=== PATIENT | female | born 1975 | race Caucasian/White ===

== ENCOUNTER 2017-10-09 22:46 | Emergency (ER) | payer MEDICARE, MEDICAID ==
[2017-10-09] MEDS ORDERED: NALOXONE HCL INJ/PF 0.4 MG/1 ML SDV ONE (22:52)
[2017-10-09] MEDS ORDERED: NORMAL SALINE 1000 ML 1,000 ML IV PRN (22:55)
[2017-10-09] MEDS ORDERED: NALOXONE HCL INJ/PF 0.4 MG/1 ML SDV IV ONE (22:55)
--- NOTE | 2017-10-09 22:59 | ER Document Report ---
ED Substance Abuse / Acc. OD - General Stated Complaint: UNRESPONSIVE Notes: Patient is a 41-year-old female that comes by EMS from home after being found unresponsive. Sister found patient and called EMS. EMS reports that patient broke up with her boyfriend nathan, has a history of anxiety and depression. No report of patient taking anything more pills lying around. Patient unable to provide any history due to her unresponsive state. - Related Data Allergies/Adverse Reactions: acetaminophen [From Vicodin] Allergy (Verified 10/10/17 01:08) hydrocodone [From Vicodin] Allergy (Verified 10/10/17 01:08) Past Medical History - General Information source: Emergency Med Personnel - Social History Smoking Status: Never Smoker Frequency of alcohol use: None Drug Abuse: None Lives with: Family Family History: Reviewed & Not Pertinent Malignancy Medical History: Reports: Hx Breast Cancer Psychiatric Medical History: Reports: Hx Anxiety, Hx Depression - Immunizations Immunizations up to date: Yes Hx Diphtheria, Pertussis, Tetanus Vaccination: Yes Review of Systems - Review of Systems Constitutional: No symptoms reported EENT: No symptoms reported Cardiovascular: See HPI Respiratory: See HPI Gastrointestinal: See HPI Genitourinary: No symptoms reported Female Genitourinary: No symptoms reported Musculoskeletal: No symptoms reported Skin: No symptoms reported Hematologic/Lymphatic: No symptoms reported Neurological/Psychological: See HPI Physical Exam - Vital signs Vitals: Resp Pulse Ox 20 99 10/09/17 22:53 10/09/17 22:53 - General General appearance: Unresponsive - Respiratory Respiratory status: Other - Slightly depressed respirations Breath sounds: Normal. No: Rales, Rhonchi, Stridor, Wheezing - Cardiovascular Rhythm: Regular. No: Tachycardia Heart sounds: Normal auscultation, S1 appreciated, S2 appreciated - Abdominal Inspection: Normal Distension: No: Distended Tenderness: Nontender - Back Back: Normal, Nontender - Extremities General upper extremity: Normal inspection. No: Edema General lower extremity: Normal inspection. No: Edema - Neurological [place] Coma Scale Eye Opening: None [place] Coma Scale Verbal: None [place] Coma Scale Motor: None [place] Coma Scale Total: 3 - Skin Skin Temperature: Warm Skin Moisture: Dry Skin Color: Normal Course - Re-evaluation Re-evalutation: On evaluation patient suddenly took a large inspiration and started moving and responding; patient began answering questions and following directions although she remains sedated. She is tachycardic. NPA airway in place. Patient denies taking any medications, drinking any alcohol, she just asks "where am I" and is not cooperating answering any questions at this time. Giving IV fluids, keeping on monitor, workup pending. Dr. Miller evaluated patient at bedside. 10/09/17 23:15 Family including father and sister at bedside. They state that patient got home from the store, she vomited about 7 times, she began to get pale, then she slumped over and became unresponsive. Dad states he put some sugar in her mouth because he thought her blood sugar might be low. They state when they could not awaken the patient they called EMS. They deny that she took any medications or did anything out of the ordinary. Patient is now fully awake, alert, sitting up, talking, emotional. Patient given IV fluids, tachycardia significantly improved. She complains of soreness over the area where sternal rub was performed but otherwise denies any current symptoms. CBC, chemistry, urinalysis, urine drug screen all unremarkable. EKG showing sinus tachycardia with no other abnormalities. Chest x-ray unremarkable, CAT scan of the head unremarkable. Patient appears to have had an episode of syncope but her extended unresponsive state is not defined or clear. I do not know the cause of her symptoms at this time. D-Dimer placed because patient continues to have borderline tachycardia and because I am not sure of the cause of her symptoms tonight. Discussed with Dr. Solis, also recommends troponin, agrees with d-dimer. D-dimer elevated, will perform CTA. CTA shows pulmonary nodules which appear benign, no pulmonary emboli or other acute abnormality. Patient continues to be alert and well-appearing, she ambulates without any difficulty or return syncope. Patient and family are asking to go home. Patient denies SI or HI, she has good family support, she states she was upset about earlier but states that she has no intention of hurting herself or anyone else. Family states they feel that she should be at home with them. Patient does have good primary care follow-up, given a copy of her CAT scan, discussed follow-up importance because of a history of cancer in the family including lung cancer, discussed return precautions. They state understanding and agreement. - Vital Signs Vital signs: Temp Pulse Resp BP Pulse Ox 19 108/79 97 10/10/17 01:01 10/10/17 01:01 10/10/17 01:01 - Laboratory Result Diagrams: 10/09/17 22:50 10/09/17 22:50 Laboratory results interpreted by me: 10/09/17 10/09/17 10/09/17 22:50 22:50 22:50 RDW 15.0 H D-Dimer 0.77 H Est GFR (Non-Af Amer) 53 L AST 66 H Salicylates < 1.0 L Acetaminophen < 10 L Discharge - Discharge Clinical Impression: Syncope Qualifiers: Syncope type: unspecified Qualified Code(s): R55 - Syncope and collapse Condition: Stable Disposition: HOME, SELF-CARE Additional Instructions: Your CAT scan shows what appear to be benign nodules in your lungs but no clot or concerning other finding was found on your workup tonight. The exact cause of your passing out and symptoms tonight is uncertain. Follow- up closely with your primary care provider. You will need follow-up studies for monitoring to make sure you do not develop cancer nodules in your lungs. Return for any concerning symptoms including difficulty breathing, passing out again, fever, or any other concerning symptoms.
[2017-10-09 23:09] LABS: ABSOLUTE BASOPHILS # (AUTO) 0.1 10^3/uL (0.0-0.2); ABSOLUTE EOSINOPHILS # (AUTO) 0.2 10^3/uL (0.0-0.6); ABSOLUTE LYMPHOCYTES (AUTO) 2.2 10^3/uL (0.5-4.7); ABSOLUTE MONOCYTES (AUTO) 0.5 10^3/uL (0.1-1.4); ABSOLUTE NEUT (AUTO) 2.3 10^3/uL (1.7-8.2); BASOPHILS % (AUTO) 1.1 % (0-2); EOSINOPHILS % (AUTO) 3.2 % (0-6); HEMATOCRIT 42.9 % (36.0-47.0); HEMOGLOBIN 14.6 g/dL (12.0-15.5); LYMPHOCYTES % (AUTO) 41.5 % (13-45); MEAN CORPUSCULAR HEMOGLOBIN 30.6 pg (27.0-33.4); MEAN CORPUSCULAR VOLUME 90 fl (80-97); MONOCYTES % (AUTO) 9.3 % (3-13); PLATELET COUNT 177 10^3/uL (150-450); RED BLOOD COUNT 4.76 10^6/uL (3.72-5.28); SEGMENTED NEUTROPHILS % (AUTO) 44.9 % (42-78); TOTAL CELLS COUNTED % (AUTO) 100 %; WHITE BLOOD COUNT 5.2 10^3/uL (4.0-10.5)
[2017-10-09 23:12] LABS: VENOUS BLOOD BASE EXCESS 2.3 mmol/L; VENOUS BLOOD HCO3 27.9 mmol/L (20-32); VENOUS BLOOD PCO2 46.6 mmHg (35-63); VENOUS BLOOD PH 7.4 (7.30-7.42)
[2017-10-09 23:29] LABS: ALANINE AMINOTRANSFERASE 34 U/L (9-52); ALBUMIN 4.6 g/dL (3.5-5.0); ALKALINE PHOSPHATASE 80 U/L (38-126); ANION GAP 12 (5-19); ASPARTATE AMINO TRANSFERASE 66 U/L (14-36); BILIRUBIN,DIRECT 0.2 mg/dL (0.0-0.4); BILIRUBIN,TOTAL 1.1 mg/dL (0.2-1.3); BLOOD UREA NITROGEN 15 mg/dL (7-20); CALCIUM 9.9 mg/dL (8.4-10.2); CARBON DIOXIDE 26 mmol/L (22-30); CHLORIDE 104 mmol/L (98-107); GLUCOSE 99 mg/dL (75-110); SODIUM 142.3 mmol/L (137-145); TOTAL PROTEIN 7.3 g/dL (6.3-8.2)
[2017-10-09 23:30] LABS: ACETAMINOPHEN < 10 ug/mL (10-30); ALCOHOL < 10 mg/dL (NONE DETECTED); SALICYLATE < 1.0 mg/dL (2.0-20.0)
--- NOTE | 2017-10-10 00:05 | RADIOLOGY REPORT (SQ) ---
EXAM DESCRIPTION: CHEST SINGLE VIEW CLINICAL HISTORY: 41 years, Female, unresponsive COMPARISON: None. NUMBER OF VIEWS: 1 LIMITATIONS: None. FINDINGS: Prominent interstitium, normal cardiac silhouette, and lower cervical hardware fusion. IMPRESSION: No acute cardiopulmonary findings.
[2017-10-10 00:14] LABS: APPEARANCE,URINE CLEAR; BILIRUBIN,URINE NEGATIVE (NEGATIVE); COLOR,URINE STRAW; GLUCOSE, URINE NEGATIVE (NEGATIVE); KETONES,URINE NEGATIVE (NEGATIVE); LEUKOCYTE ESTERASE,URINE NEGATIVE (NEGATIVE); NITRITE,URINE NEGATIVE (NEGATIVE); PROTEIN,URINE NEGATIVE (NEGATIVE); URINE SPECIFIC GRAVITY 1.003; UROBILINOGEN,URINE NEGATIVE mg/dL (<2.0)
--- NOTE | 2017-10-10 00:17 | RADIOLOGY REPORT (SQ) ---
EXAM DESCRIPTION: CT HEAD WITHOUT CLINICAL HISTORY: 41 years Female, AMS COMPARISON: None. TECHNIQUE: No contrast. This exam was performed according to our departmental dose-optimization program, which includes automated exposure control, adjustment of the mA and/or kV according to patient size and/or use of iterative reconstruction technique. FINDINGS: No hemorrhage or infarct. No mass, mass effect, or midline shift. Brain and extra-axial structures appear otherwise intact. IMPRESSION: Normal CT of the head.
[2017-10-10 00:28] LABS: URINE AMPHETAMINES SCREEN NEGATIVE; URINE BARBITURATES SCREEN NEGATIVE; URINE BENZODIAZEPINES SCREEN NEGATIVE; URINE COCAINE SCREEN NEGATIVE; URINE MARIJUANA (THC) SCREEN NEGATIVE; URINE PHENCYCLIDINE SCREEN NEGATIVE
[2017-10-10 00:29] LABS: URINE METHADONE SCREEN NEGATIVE
[2017-10-10] MEDS ORDERED: KETOROLAC TROMETHAMINE INJ/PF 30 MG/1 ML SDV IV ONE (00:42)
[2017-10-10] MEDS ORDERED: FENTANYL CITRATE INJ/PF 100 MCG/2 ML AMPUL IV ONE (01:34)
--- NOTE | 2017-10-10 02:40 | RADIOLOGY REPORT (SQ) ---
EXAM DESCRIPTION: CTA CHEST CLINICAL HISTORY: 41 years Female, syncope, tachycardia, elevated D-Dimer COMPARISON: None. TECHNIQUE: 100 mL Isovue-370 IV contrast. Coronal and sagittal reformat. This exam was performed according to our departmental dose-optimization program, which includes automated exposure control, adjustment of the mA and/or kV according to patient size and/or use of iterative reconstruction technique. FINDINGS: Acute cardiopulmonary findings. No pulmonary embolus. No right ventricular strain. Likely benign peripheral nodularity of the right middle and lower lobe including four noncalcified pulmonary nodules measuring up to 0.5 cm (mean diamter) each, image 70, image 77, 61, and image 67; if the patient is low risk, no routine follow-up is recommended. If the patient is high risk, optional CT is recommended at 12 months. Cholecystectomy clips. Inferior neck, axillae, mediastinum, airway, lymphatics, heart, vasculature, upper abdomen, and musculoskeleton appear otherwise unremarkable. IMPRESSION: 1. No acute cardiopulmonary findings. No pulmonary embolus. 2. Four likely benign right lower lobar pulmonary nodules measure up to 0.5 cm each. If the patient is low risk, no routine follow-up is recommended. If the patient is high risk, optional CT is recommended at 12 months.
[2017-10-10 03:09] VITALS: BP 122/82
--- NOTE | 2017-10-10 11:06 | EKG REPORT ---
SEVERITY:- OTHERWISE NORMAL ECG - SINUS TACHYCARDIA : Confirmed by: Dave Hendricks 10-Oct-2017 11:05:39
== END 2017-10-10 03:09 | disposition home or self-care (01) ==
LOC: ER 22:46
DX: R55 Syncope and collapse (principal); R00.0 Tachycardia, unspecified; R11.10 Vomiting, unspecified; R91.8 Other nonspecific abnormal finding of lung field; Z88.5 Allergy status to narcotic agent; Z85.3 Personal history of malignant neoplasm of breast
CPT/HCPCS: 93005; 99285; 96361; 96374; 96375; 36415; 80307 ×4; 84703; 85025; 80053; 81001; 84484; 85379; 82803; 71045; 70450; 71275; 93010; J3010; J1885; J2310; J7030